=== PATIENT | female | born 1955 | race Two or more races ===

== ENCOUNTER 2017-05-22 10:32 | Emergency (ER) | payer OTHER ==
[~2017-05-22] VITALS: Ht 154.9 cm; Wt 80.3 kg
--- NOTE | 2017-05-22 10:39 | NUR ---
[facility] FAMILY C/O MID EPIGASTRIC PAIN WORSENING X 1 DAY. HX OF GERD
--- NOTE | 2017-05-22 11:15 | NUR ---
EKG IN PROGRESS
[2017-05-22 11:31] VITALS: BP 135/85
== END 2017-05-22 11:32 | disposition home or self-care (01) ==
LOC: ER 10:35
DX: K21.9 Gastro-esophageal reflux disease without esophagitis (principal)
CPT/HCPCS: A4606; Z7610

== ENCOUNTER 2020-01-27 12:49 | Emergency (ER) | payer OTHER ==
[~2020-01-27] VITALS: Ht 152.4 cm; Wt 81.6 kg
--- NOTE | 2020-01-27 13:00 | NUR ---
[facility] Family from Home "slipped/fell while in shower Left Knee/LE pain". On room air, breathing evenly and unlabored. kept comfortable, will continue to monitor accordingly.
[2020-01-27 14:07] VITALS: BP 140/81
--- NOTE | 2020-01-27 14:08 | NUR ---
Patient discharged to home in stable condition. Written and verbal after care instructions given. Patient verbalizes understanding of instruction.
== END 2020-01-27 14:08 | disposition home or self-care (01) ==
LOC: ER 12:52
DX: S80.02XA Contusion of left knee, initial encounter (principal); K21.9 Gastro-esophageal reflux disease without esophagitis; W01.0XXA Fall on same level from slipping, tripping and stumbling without subsequent striking against object, initial encounter; Y93.E1 Activity, personal bathing and showering; Y92.89 Other specified places as the place of occurrence of the external cause; Y99.8 Other external cause status
CPT/HCPCS: 73564-TC; 73590-TC